=== PATIENT | female | born 1985 | race Two or more races ===

== ENCOUNTER → 2024-05-11 10:46 | Outpatient (CLI) | payer OTHER | END | disposition home or self-care (01) | LOC: PRENATAL 10:46 | PROVIDERS: ATTEND Obstetrics & Gynecology Maternal & Fetal Medicine | DX: O44.00 Complete placenta previa NOS or without hemorrhage, unspecified trimester (principal); O09.529 Supervision of elderly multigravida, unspecified trimester; Z3A.23 23 weeks gestation of pregnancy ==

== ENCOUNTER 2024-07-13 10:22 | Outpatient (CLI) | payer OTHER | END 2024-07-13 10:23 | disposition home or self-care (01) | LOC: PRENATAL 10:22 | PROVIDERS: ATTEND Obstetrics & Gynecology Maternal & Fetal Medicine | DX: O26.849 Uterine size-date discrepancy, unspecified trimester (principal); O36.8199 Decreased fetal movements, unspecified trimester, other fetus; O09.529 Supervision of elderly multigravida, unspecified trimester; O32.9XX0 Maternal care for malpresentation of fetus, unspecified, not applicable or unspecified; Z3A.33 33 weeks gestation of pregnancy ==

== ENCOUNTER 2024-08-15 15:15 | Inpatient (IN) | payer OTHER ==
[~2024-08-15] VITALS: Ht 165.1 cm; Wt 69.4 kg
[2024-08-31 16:53] VITALS: BP 113/68
[2024-08-31] MEDS ORDERED: PRENATAL TABLE1 EAC4 PO (17:38)
[2024-08-31] MEDS ORDERED: ASA81 MG PO (17:38)
[2024-08-31 18:00] LABS: HEMATOCRIT 41.4 % (36.0-45.00); HEMOGLOBIN 14.4 g/dL (12.0-15.00); MEAN CELL VOLUME 95.4 fL (80.00-100.00); MEAN CORPUSCULAR HEMOGLOBIN 33.2 pg (27.00-32.0); MEAN CORPUSCULAR HGB CONC 34.8 g/dl (32.0-36.0); PLATELET COUNT 192 K/uL (150-450); RED BLOOD COUNT 4.34 M/uL (4.00-6.00); RED CELL DISTRIBUTION WIDTH 15.2 % (11.5-14.5); URINE APPEARANCE Clear; URINE BILIRRUBIN Negative (NEGATIVE); URINE BLOOD Negative; URINE COLOR Yellow; URINE GLUCOSE Negative (NEGATIVE); URINE KETONE Negative (NEGATIVE); URINE LEUKOCYTE Negative; URINE NITRATE Negative; URINE PROTEIN Negative (NEGATIVE); URINE UROBILINOGEN 0.2 E.U./dl
[2024-08-31 18:04] LABS: URINE BACTERIA 903.2 uL (0.0-1933); URINE EPITHELIAL CELLS 6.9 uL (0.0-38.8); URINE WBC 12.6 uL (0.0-23.2)
[2024-08-31 18:23] LABS: INR < 0.93; PARTIAL THROMBOPLASTIN TIME 31.3 SECONDS (22.0-34.0); PROTHROMBIN TIME 10.2 SECONDS (9.0-11.5); URINE CAST 0.29 uL (0.0-1.40); URINE RBC 1.3 uL (0.0-20.8)
[2024-08-31 18:28] LABS: ALBUMIN 2.7 gm/dL (3.4-5.0); BILIRUBIN TOTAL 0.53 mg/dL (0.3-1.2); CALCIUM 8.8 mg/dL (8.5-10.1); CREATININE SERUM 0.6 mg/dL (0.55-1.02); GFR 110.72; GLOBULINA 3.8 G/DL (2.4-3.5); POTASSIUM 4.02 mEq/L (3.5-5.1); TOTAL PROTEIN 6.5 gm/dL (6.4-8.2)
[2024-08-31] MEDS ORDERED: MISOPROSTOL 25 MCG TABLET ONE (18:39)
[2024-08-31] MEDS ORDERED: MISOPROSTOL 25 MCG TABLET VAG ONE (18:45)
[2024-08-31 20:20] VITALS: BP 94/51
[2024-08-31 23:07] VITALS: BP 111/57
[2024-09-01] MEDS ORDERED: MORPHINE SULFATE 4 MG/ML CARTRIDGE IV PRN ×2 (02:00→19:30)
[2024-09-01 02:37] VITALS: BP 119/65
[2024-09-01 06:59] VITALS: BP 118/77
[2024-09-01 15:12] VITALS: BP 112/73; BP 117/69
[2024-09-01] MEDS ORDERED: CEFOXITIN SODIUM 2,000 MG VIAL IV ONE (16:58)
[2024-09-01] MEDS ORDERED: CEFOXITIN SODIUM 2,000 MG VIAL IV SCH (17:15)
[2024-09-01] MEDS ORDERED: ERYTHROMYCIN BASE OPHT 1GM EACH TUBE OP ONE (17:26)
[2024-09-01] MEDS ORDERED: CHLORHEXIDINE GLUCONATE 120 ML BOTTLE TOP ONE (17:26)
[2024-09-01] MEDS ORDERED: OXYTOCIN 10 UNITS/ML VIAL ONE ×2 (17:26→21:24)
[2024-09-01] MEDS ORDERED: METHYLERGONOVINE MALEATE 0.2 MG/ML AMPUL ONE ×2 (18:20→20:19)
[2024-09-01] MEDS ORDERED: OXYTOCIN 1,000 ML IV SCH (19:30)
[2024-09-01] MEDS ORDERED: ONDANSETRON HCL 2 MG/ML VIAL IV PRN (19:30)
[2024-09-01] MEDS ORDERED: METHYLERGONOVINE MALEATE 0.2 MG/ML AMPUL IM SCH (21:00)
[2024-09-01] MEDS ORDERED: SIMETHICONE 125 MG CAPSULE PO SCH (21:00)
[2024-09-01] MEDS ORDERED: MORPHINE SULFATE 4 MG/ML VIAL IV ONE (21:30)
[2024-09-01 22:22] VITALS: BP 116/76
[2024-09-02] VITALS: BP 107/64
[2024-09-02 01:35] LABS: HEMATOCRIT 35.6 % (36.0-45.00); MEAN CELL VOLUME 97.3 fL (80.00-100.00); MEAN CORPUSCULAR HEMOGLOBIN 32.7 pg (27.00-32.0); MEAN CORPUSCULAR HGB CONC 33.6 g/dl (32.0-36.0); PLATELET COUNT 170 K/uL (150-450); RED BLOOD COUNT 3.66 M/uL (4.00-6.00); RED CELL DISTRIBUTION WIDTH 15.4 % (11.5-14.5)
[2024-09-02 02:01] LABS: CALCIUM 7.9 mg/dL (8.5-10.1); CREATININE SERUM 0.61 mg/dL (0.55-1.02); GFR 108.63; POTASSIUM 3.81 mEq/L (3.5-5.1)
[2024-09-02] MEDS ORDERED: METHYLERGONOVINE MALEATE 0.2 MG/ML AMPUL ONE (05:15)
[2024-09-02] MEDS ORDERED: MORPHINE SULFATE 4 MG/ML CARTRIDGE IV ONE (08:15)
[2024-09-02] MEDS ORDERED: ACETAMINOPHEN WITH CODEINE 1 UDTAB TABLET PO PRN (08:15)
[2024-09-02 08:52] VITALS: BP 99/61
[2024-09-02] MEDS ORDERED: NAPROXEN 500 MG TABLET PO SCH (09:00)
[2024-09-02] MEDS ORDERED: DOCUSATE SODIUM 100MG CAP PO SCH (09:00)
[2024-09-02 16:00] VITALS: BP 90/55
[2024-09-03] VITALS: BP 90/60
[2024-09-03 09:10] VITALS: BP 102/61
[2024-09-03 17:31] VITALS: BP 84/52
[2024-09-03 20:15] VITALS: BP 92/48
[2024-09-04] VITALS: BP 98/61
[2024-09-04] MEDS ORDERED: Tylenol #3 PO (07:24)
[2024-09-04] MEDS ORDERED: NAPR500T14 PO (07:25)
[2024-09-04 08:35] VITALS: BP 98/61
[2024-09-04 16:53] VITALS: BP 96/63
[2024-09-04 20:42] VITALS: BP 106/66
[2024-09-04 23:59] VITALS: BP 103/63
[2024-09-05 08:00] VITALS: BP 113/72
== END 2024-09-05 20:35 | disposition home or self-care (01) | DRG 788 ==
LOC: LDR 08-31 16:34 → O/R 09-01 18:28 → OB/GYN 09-01 20:25
PROVIDERS: ADMIT Obstetrics & Gynecology; ATTEND Obstetrics & Gynecology
PROC: 4A1HXCZ Monitoring of Products of Conception, Cardiac Rate, External Approach (ICD-10-PCS; 2024-08-31)
PROC: 3E0P7VZ Introduction of Hormone into Female Reproductive, Via Natural or Artificial Opening (ICD-10-PCS; 2024-08-31)
PROC: 3E033VJ Introduction of Other Hormone into Peripheral Vein, Percutaneous Approach (ICD-10-PCS; 2024-09-01)
PROC: 10D00Z1 Extraction of Products of Conception, Low, Open Approach (ICD-10-PCS; principal; 2024-09-01 18:15)
DX: O82 Encounter for cesarean delivery without indication (principal); O62.1 Secondary uterine inertia; Z37.0 Single live birth; Z3A.39 39 weeks gestation of pregnancy